=== PATIENT | female | born 1940 | race Caucasian/White ===

== ENCOUNTER → 2018-02-09 | Outpatient (CLI) | payer MEDICARE ==
[~2018-02-09] MED LIST: ALPHAGAN OU; ATENOLOL25 MG PO; BACTROBAN15 GM TOP; BENTYL20 MG PO; IOPAMIDOL 370 MG/ML 200 ML INFUS..BTL INJ ONE; LEVOTHYROXINE75 MCG PO; LIPITOR40 MG PO; LUMIGAN OU; PAXIL40 MG PO; PROAIR; SODIUM CHLORIDE 0.9% 50ML 50 ML ONE; TRICOR145 MG PO; VICODIN 5-5001 EACH PO; VICODIN HP TAB1 EACH PO; XANAX XR1 MG PO; ZEGERID 40 MG1 EACH PO; [UNRECOGNIZED DRUG - OTHER]; [UNRECOGNIZED DRUG - OTHER] OU
[2018-02-09 11:06] LABS: BLOOD UREA NITROGEN 12 mg/dL (7-26); BUN/CREATININE RATIO 16 (6-25); CREATININE, SERUM 0.77 mg/dL (0.57-1.11); EST GLOMERULAR FILTRATION RATE > 60 ML/MIN (60-)
--- NOTE | 2018-02-09 12:13 | Diagnostic Imaging Report ---
EXAM: CT Chest WITH contrast 02/09/2018 10:22 AM INDICATION: \[id number] \S\[id number] \S\ABNORMAL FINDINGS OF LUNG FIELD COMPARISON: None. TECHNIQUE: Chest was scanned utilizing a multidetector helical scanner from the lung apex through the level of the adrenal glands after administration of IV contrast. Coronal and sagittal reformations were obtained. IV CONTRAST: 100 mL of Isovue-370 ORAL CONTRAST: None COMPLICATIONS: None RADIATION DOSE: Total DLP: 554.6 mGy*cm Estimated effective dose: (DLP x 0.015 x size factor) mSv CTDIvol has been reviewed. It is below the limits set by the Radiation Protocol Committee (RPC). FINDINGS: LINES/ TUBES: None. LUNGS AND AIRWAYS: Pleural-based 6.7 x 3.8 x 1.8 cm (SAT) mass in the superior segment of the right lower lobe on series 3, image 72, which is abutting but not invading the posterior chest wall and right side of the thoracic vertebral body from T7 to T9. There is no erosion of the adjacent ribs. No additional ipsi or contralateral suspicious pulmonary nodules. Moderate bilateral upper lobe predominant centrilobular and paraseptal emphysema. Mild subpleural reticulation of the lungs suggestive of mild pulmonary fibrosis. Diffuse moderate narrowing of the distal right mainstem bronchus and subsegmental branches of the right lower lobe due to extrinsic compression by the confluent right hilar lymphadenopathy. PLEURA: The pleural spaces are clear. HEART AND MEDIASTINUM: The thyroid gland is normal. Confluent right hilar lymphadenopathy (Levels 10-12) measuring up to 4.1 x 2.3 cm on series 2, image 56. There are additional enlarged bilateral mediastinal lymph nodes with the largest in the right lower paratracheal region (4R) measuring 1.6 cm. The AP window lymph nodes measure up to 0.7 cm but are suggestive of metastatic disease. Subcarinal lymph node measures 1.7 cm on series 2, image 53. No retropectoral or supraclavicular lymphadenopathy. The heart is normal in size. There is no pericardial effusion. The thoracic aorta and pulmonary arteries are unremarkable. UPPER ABDOMEN: Unremarkable. Specifically, adrenal glands are normal. Status post cholecystectomy. BONES: Cervical spine fusion. Multilevel degenerative changes of the thoracic spine. Increased trabeculations of the T11 vertebral body appears to represent a hemangioma rather than metastasis. Otherwise, no lytic lesions. Few faint sclerotic lesions probably thoracic spine may be related to this patient bone demineralization. SOFT TISSUES: Unremarkable. IMPRESSION: 1. Large posterior right lower lobe mass measuring up to 6.7 cm and abutting the posterior chest wall and right side of the T7-T9 vertebral bodies without chest wall invasion. - No additional ipsilateral or contralateral suspicious pulmonary nodules. 2. Large confluent right hilar, bilateral mediastinal, and subcarinal lymphadenopathy. This results in moderate narrowing of the distal right mainstem bronchus and a few proximal branches of the right lower lobe. Overall findings are consistent with primary lung malignancy. 3. No adrenal gland nodules. Signed by: Dr. Jennifer Kearns M.D. on 02/09/2018 12:10 PM
== END ==
LOC: CT 10:10
PROVIDERS: ATTEND Family Medicine
DX: R91.8 Other nonspecific abnormal finding of lung field (principal)
CPT/HCPCS: 36415; 71260; 82565; 84520; Q9967

== ENCOUNTER → 2018-03-01 | Outpatient (CLI) | payer MEDICARE ==
[~2018-03-01] MED LIST changes: +FENTANYL CITRATE/PF 100MCG/2 ML INJ ONE; -IOPAMIDOL 370 MG/ML 200 ML INFUS..BTL INJ ONE; +LIDOCAINE HCL 1% LOCAL INJ 20 ML VIAL ONE; +MIDAZOLAM HCL 2 MG/2 ML VIAL ONE; +SODIUM CHLORIDE 0.9% 500ML 500 ML ONE; -SODIUM CHLORIDE 0.9% 50ML 50 ML ONE
[2018-03-01 09:01] LABS: INR 0.91; PROTHROMBIN TIME 13.1 seconds (11.9-14.5)
[2018-03-01 09:02] LABS: PARTIAL THROMBOPLASTIN TIME 23.1 seconds (23.8-35.5)
--- NOTE | 2018-03-01 10:37 | Diagnostic Imaging Report ---
PROCEDURE: CHEST XRAY POST PROCEDURE COMPARISON: CT scan of the chest 02/09/2018. INDICATIONS: POST LUNG BIOPSY FINDINGS: Ovoid opacity in the right retrocardiac region, corresponding to the mass lesion identified on comparison CT. Trace iatrogenic pneumothorax identified on post procedure CT is not identified by plain radiography. Stable cardiomediastinal contour. Fullness of the right hilum shown to represent lymphadenopathy on comparison CT. Left lung is grossly clear. No acute osseous abnormality. Cervical spine fusion hardware partially visualized. Osteolysis of the distal right clavicle. CONCLUSION: Status post percutaneous biopsy of right lower lobe mass. Trace iatrogenic pneumothorax identified on immediate postbiopsy CT is not appreciated by plain radiography. Dictated by: Blayne Dimas M.D. on 03/01/2018 at 10:46 Electronically approved by: Blayne Dimas M.D. on 03/01/2018 at 10:46
--- NOTE | 2018-03-01 10:58 | Diagnostic Imaging Report ---
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 The patient's heart rate and pulse oximetry were continuously monitored by the interventional radiology nurse. Blood pressure was monitored at 5 minute intervals. Total sedation time: 35 minutes Additional Medications: Lidocaine 1% for local anesthesia Contrast used: None Estimated blood loss: Minimal Blood products administered: None Specimens: Fine-needle aspiration x1, core biopsies x5 Implants: None Complications: Trace iatrogenic pneumothorax Condition at completion of procedure: Stable Disposition: Radiology holding DISCUSSION: Informed consent was obtained and documented in the medical record after discussion of risks and benefits. The patient was placed in the prone position on the CT couch and a marker grid was placed over the right posterior chest wall. Limited CT evaluation of the thorax was then performed and a suitable percutaneous approach to the right lower lobe mass was identified. The overlying skin was marked then prepped and draped in the standard sterile fashion. 1% lidocaine was infiltrated into the skin and subcutaneous tissue for local anesthesia. Then under intermittent CT guidance a 16-gauge needle guide was advanced to the periphery of the mass. A single fine-needle aspiration specimen was obtained coaxially using a 20-gauge Chiba needle. Specimen was submitted to on-site cytopathology personnel and intralesional location was confirmed. Subsequently, a total of 5 core biopsy specimens were obtained using an 18-gauge, 2 cm throw core biopsy apparatus with patient intake representative CT images obtained. At the conclusion of sampling 3 cc of autologous blood was injected through the needle guide as it was removed. A sterile, occlusive dressing was applied. Postprocedure limited CT showed presence of a trace iatrogenic right pneumothorax. The patient tolerated the procedure well and remained asymptomatic with adequate oxygen saturation throughout the procedure. FINDINGS: Right lung mass IMPRESSION: Successful CT-guided fine-needle aspiration and core biopsies of a right lower lobe pulmonary mass. Trace iatrogenic pneumothorax will be followed by serial chest radiographs. Signed by: Dr. Blayne Dimas M.D. on 03/01/2018 10:55 AM
--- NOTE | 2018-03-01 10:58 | Diagnostic Imaging Report ---
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 The patient's heart rate and pulse oximetry were continuously monitored by the interventional radiology nurse. Blood pressure was monitored at 5 minute intervals. Total sedation time: 35 minutes Additional Medications: Lidocaine 1% for local anesthesia Contrast used: None Estimated blood loss: Minimal Blood products administered: None Specimens: Fine-needle aspiration x1, core biopsies x5 Implants: None Complications: Trace iatrogenic pneumothorax Condition at completion of procedure: Stable Disposition: Radiology holding DISCUSSION: Informed consent was obtained and documented in the medical record after discussion of risks and benefits. The patient was placed in the prone position on the CT couch and a marker grid was placed over the right posterior chest wall. Limited CT evaluation of the thorax was then performed and a suitable percutaneous approach to the right lower lobe mass was identified. The overlying skin was marked then prepped and draped in the standard sterile fashion. 1% lidocaine was infiltrated into the skin and subcutaneous tissue for local anesthesia. Then under intermittent CT guidance a 16-gauge needle guide was advanced to the periphery of the mass. A single fine-needle aspiration specimen was obtained coaxially using a 20-gauge Chiba needle. Specimen was submitted to on-site cytopathology personnel and intralesional location was confirmed. Subsequently, a total of 5 core biopsy specimens were obtained using an 18-gauge, 2 cm throw core biopsy apparatus with medical center representative CT images obtained. At the conclusion of sampling 3 cc of autologous blood was injected through the needle guide as it was removed. A sterile, occlusive dressing was applied. Postprocedure limited CT showed presence of a trace iatrogenic right pneumothorax. The patient tolerated the procedure well and remained asymptomatic with adequate oxygen saturation throughout the procedure. FINDINGS: Right lung mass IMPRESSION: Successful CT-guided fine-needle aspiration and core biopsies of a right lower lobe pulmonary mass. Trace iatrogenic pneumothorax will be followed by serial chest radiographs. Signed by: Dr. Blayne Dimas M.D. on 03/01/2018 10:55 AM
--- NOTE | 2018-03-01 10:58 | Diagnostic Imaging Report ---
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 The patient's heart rate and pulse oximetry were continuously monitored by the interventional radiology nurse. Blood pressure was monitored at 5 minute intervals. Total sedation time: 35 minutes Additional Medications: Lidocaine 1% for local anesthesia Contrast used: None Estimated blood loss: Minimal Blood products administered: None Specimens: Fine-needle aspiration x1, core biopsies x5 Implants: None Complications: Trace iatrogenic pneumothorax Condition at completion of procedure: Stable Disposition: Radiology holding DISCUSSION: Informed consent was obtained and documented in the medical record after discussion of risks and benefits. The patient was placed in the prone position on the CT couch and a marker grid was placed over the right posterior chest wall. Limited CT evaluation of the thorax was then performed and a suitable percutaneous approach to the right lower lobe mass was identified. The overlying skin was marked then prepped and draped in the standard sterile fashion. 1% lidocaine was infiltrated into the skin and subcutaneous tissue for local anesthesia. Then under intermittent CT guidance a 16-gauge needle guide was advanced to the periphery of the mass. A single fine-needle aspiration specimen was obtained coaxially using a 20-gauge Chiba needle. Specimen was submitted to on-site cytopathology personnel and intralesional location was confirmed. Subsequently, a total of 5 core biopsy specimens were obtained using an 18-gauge, 2 cm throw core biopsy apparatus with client services representative CT images obtained. At the conclusion of sampling 3 cc of autologous blood was injected through the needle guide as it was removed. A sterile, occlusive dressing was applied. Postprocedure limited CT showed presence of a trace iatrogenic right pneumothorax. The patient tolerated the procedure well and remained asymptomatic with adequate oxygen saturation throughout the procedure. FINDINGS: Right lung mass IMPRESSION: Successful CT-guided fine-needle aspiration and core biopsies of a right lower lobe pulmonary mass. Trace iatrogenic pneumothorax will be followed by serial chest radiographs. Signed by: Dr. Blayne Dimas M.D. on 03/01/2018 10:55 AM
--- NOTE | 2018-03-01 10:58 | Diagnostic Imaging Report ---
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 The patient's heart rate and pulse oximetry were continuously monitored by the interventional radiology nurse. Blood pressure was monitored at 5 minute intervals. Total sedation time: 35 minutes Additional Medications: Lidocaine 1% for local anesthesia Contrast used: None Estimated blood loss: Minimal Blood products administered: None Specimens: Fine-needle aspiration x1, core biopsies x5 Implants: None Complications: Trace iatrogenic pneumothorax Condition at completion of procedure: Stable Disposition: Radiology holding DISCUSSION: Informed consent was obtained and documented in the medical record after discussion of risks and benefits. The patient was placed in the prone position on the CT couch and a marker grid was placed over the right posterior chest wall. Limited CT evaluation of the thorax was then performed and a suitable percutaneous approach to the right lower lobe mass was identified. The overlying skin was marked then prepped and draped in the standard sterile fashion. 1% lidocaine was infiltrated into the skin and subcutaneous tissue for local anesthesia. Then under intermittent CT guidance a 16-gauge needle guide was advanced to the periphery of the mass. A single fine-needle aspiration specimen was obtained coaxially using a 20-gauge Chiba needle. Specimen was submitted to on-site cytopathology personnel and intralesional location was confirmed. Subsequently, a total of 5 core biopsy specimens were obtained using an 18-gauge, 2 cm throw core biopsy apparatus with sales and service representative CT images obtained. At the conclusion of sampling 3 cc of autologous blood was injected through the needle guide as it was removed. A sterile, occlusive dressing was applied. Postprocedure limited CT showed presence of a trace iatrogenic right pneumothorax. The patient tolerated the procedure well and remained asymptomatic with adequate oxygen saturation throughout the procedure. FINDINGS: Right lung mass IMPRESSION: Successful CT-guided fine-needle aspiration and core biopsies of a right lower lobe pulmonary mass. Trace iatrogenic pneumothorax will be followed by serial chest radiographs. Signed by: Dr. Blayne Dimas M.D. on 03/01/2018 10:55 AM
--- NOTE | 2018-03-01 10:58 | Diagnostic Imaging Report ---
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 The patient's heart rate and pulse oximetry were continuously monitored by the interventional radiology nurse. Blood pressure was monitored at 5 minute intervals. Total sedation time: 35 minutes Additional Medications: Lidocaine 1% for local anesthesia Contrast used: None Estimated blood loss: Minimal Blood products administered: None Specimens: Fine-needle aspiration x1, core biopsies x5 Implants: None Complications: Trace iatrogenic pneumothorax Condition at completion of procedure: Stable Disposition: Radiology holding DISCUSSION: Informed consent was obtained and documented in the medical record after discussion of risks and benefits. The patient was placed in the prone position on the CT couch and a marker grid was placed over the right posterior chest wall. Limited CT evaluation of the thorax was then performed and a suitable percutaneous approach to the right lower lobe mass was identified. The overlying skin was marked then prepped and draped in the standard sterile fashion. 1% lidocaine was infiltrated into the skin and subcutaneous tissue for local anesthesia. Then under intermittent CT guidance a 16-gauge needle guide was advanced to the periphery of the mass. A single fine-needle aspiration specimen was obtained coaxially using a 20-gauge Chiba needle. Specimen was submitted to on-site cytopathology personnel and intralesional location was confirmed. Subsequently, a total of 5 core biopsy specimens were obtained using an 18-gauge, 2 cm throw core biopsy apparatus with motor vehicle representative CT images obtained. At the conclusion of sampling 3 cc of autologous blood was injected through the needle guide as it was removed. A sterile, occlusive dressing was applied. Postprocedure limited CT showed presence of a trace iatrogenic right pneumothorax. The patient tolerated the procedure well and remained asymptomatic with adequate oxygen saturation throughout the procedure. FINDINGS: Right lung mass IMPRESSION: Successful CT-guided fine-needle aspiration and core biopsies of a right lower lobe pulmonary mass. Trace iatrogenic pneumothorax will be followed by serial chest radiographs. Signed by: Dr. Blayne Dimas M.D. on 03/01/2018 10:55 AM
--- NOTE | 2018-03-01 12:56 | Diagnostic Imaging Report ---
Examination: Single AP view of the chest. COMPARISON: Chest radiograph earlier 03/01/2018 INDICATION: Status post lung biopsy DISCUSSION: See impression IMPRESSION: Status post CT-guided biopsy of a right lower lobe lung mass. Trace iatrogenic pneumothorax described on immediate postbiopsy CT is not evident by plain radiography. Signed by: Dr. Blayne Dimas M.D. on 03/01/2018 12:52 PM
== END ==
LOC: CT 07:32
PROVIDERS: ATTEND Family Medicine
DX: R91.8 Other nonspecific abnormal finding of lung field (principal)
CPT/HCPCS: 10022; 32405; 36415; 71045; 77012; 85049; 85610; 85730; 88112; 88172; 88173; 88305; J2001; J2250; J7040; 88342; 99152; 99153